=== PATIENT | female | born 1970 | race Caucasian/White ===

== ENCOUNTER 2017-09-24 14:25 | Outpatient (CLI) ==
--- NOTE | 2017-09-24 16:39 | DI ---
EXAM: Five views of the lumbar spine. History: Lumbar radiculopathy. Findings: No acute fracture or subluxation of the lumbar spine. Mild to moderate multilevel degener ative disc space narrowing with endplate sclerosis and small osteophyte formation. Impression: 1. No acute osseous abnormality. 2. Mild degenerative disc disease
--- NOTE | 2017-09-24 16:40 | DI ---
EXAM: Four views of the left knee. History: Left knee pain. Findings: No acute fracture or dislocation. Moderate narrowing of the medial compartment. Mild to moderate narrowing of the lateral and patellofemoral compartments with osteophyte formation. No abno rmal calcifications or radiopaque foreign bodies. Impression: 1. No acute osseous abnormality. 2. Tricompartmental osteoarthritis
--- NOTE | 2017-09-24 16:42 | DI ---
EXAM: Three views of the left ankle. History: Left ankle pain. Findings: No acute fracture or dislocation. No abnormal calcifications or radiopaque foreign bodies . Calcaneal enthesiopathy. Joint spaces are relatively preserved. Impression: 1. No acute osseous abnormality. 2. Calcaneal enthesiopathy
== END 2017-09-24 14:26 | disposition home or self-care (01) ==
LOC: RAD 14:25
PROVIDERS: ATTEND Nurse Practitioner Family
DX: M79.7 Fibromyalgia (principal); M25.50 Pain in unspecified joint; E66.9 Obesity, unspecified; M54.17 Radiculopathy, lumbosacral region; M79.89 Other specified soft tissue disorders; M25.572 Pain in left ankle and joints of left foot; G89.29 Other chronic pain
CPT/HCPCS: 36415; 80053; 80061; 85025; 86038; 86430

== ENCOUNTER 2017-11-03 12:46 | Outpatient (CLI) | END 2017-11-03 12:47 | disposition home or self-care (01) | LOC: FCC-LAB 12:46 | PROVIDERS: ATTEND Nurse Practitioner Family | DX: M54.17 Radiculopathy, lumbosacral region (principal); E66.9 Obesity, unspecified; Z79.899 Other long term (current) drug therapy | CPT/HCPCS: 36415; 80053; 81001; 87086 ==

== ENCOUNTER 2018-03-08 20:43 | Emergency (ER) | payer OTHER ==
[2018-03-08 20:55] VITALS: BP 145/100; TEMP 98.1; BMI 46.6
--- NOTE | 2018-03-08 21:18 | ED.PDOC ---
General ED Provider: Dr. KAITY ALVES MD Chief Complaint: Urinary Problem Stated Complaint: dysuria Time Seen by Physician: 21:15 Mode of Arrival: Walk-In Information Source: Patient Exam Limitations: No limitations Primary Care Provider: GERSON CARBALLO Nursing and Triage Documentation Reviewed and Agree: Yes Does patient meet sepsis criteria?: No If yes, has appropriate treatment been initiated?: Yes System Inflammatory Response Syndrome: Not Applicable Sepsis Protocol: For patient's 13 years and over: Temp is 96.8 and below OR 101 and greater Pulse >90 BPM Resp >20/minute Acutely Altered Mental Status Are patient's symptoms suggestive of a new infection, such as: -Pneumonia -Skin, Soft Tissue -Endocarditis -UTI -Bone, Joint Infection -Implantable Device -Acute Abdominal Infection -Wound Infection -Meningitis -Blood Stream Catheter Infection -Unknown Review of Systems - Review Of Systems Constitutional: Reports: No symptoms Eyes: Reports: No symptoms Ears, Nose, Mouth, Throat: Reports: No symptoms Respiratory: Reports: No symptoms Cardiac: Reports: No symptoms GI: Reports: No symptoms : Reports: No symptoms, Dysuria, Urgency Musculoskeletal: Reports: No symptoms Skin: Reports: No symptoms Neurological: Reports: No symptoms Endocrine: Reports: No symptoms Hematologic/Lymphatic: Reports: No symptoms All Other Systems: Reviewed and Negative Past Medical History - Past Medical History Previously Healthy: Yes (recent Left total knee) Endocrine: Reports: None Cardiovascular: Reports: None Respiratory: Reports: None Hematological: Reports: None Gastrointestinal: Reports: None Genitourinary: Reports: None Neuro/Psych: Reports: None Musculoskeletal: Reports: None Cancer: Reports: None Last Menstrual Period: PT HAS HAD A HYSTERECTOMY - Surgical History General Surgical History: Reports: Other (left totoal knee) - Family History Family History: Reports: None - Social History Smoking Status: Never smoker Hx Substance Use: No Alcohol Screening: None - Immunizations Tetanus Shot up to Date: Yes Physical Exam - Physical Exam Appearance: Well-appearing, No pain distress, Well-nourished Ill-appearing: None Pain Distress: Mild Eyes: SANDRA, EOMI, Conjunctiva clear ENT: Ears normal, Nose normal, Oropharynx normal Respiratory: Airway patent, Breath sounds clear, Breath sounds equal, Respirations nonlabored Cardiovascular: RRR, Pulses normal, No rub, No murmur GI/: Soft, Nontender, No masses, Bowel sounds normal, No Organomegaly Musculoskeletal: Normal strength, ROM intact, No edema, No calf tenderness Skin: Warm, Dry, Normal color Neurological: Sensation intact, Motor intact, Reflexes intact, Cranial nerves intact, Alert, Oriented Psychiatric: Affect appropriate, Mood appropriate Critical Care Note - Critical Care Note Total Time (mins): 0 Course - Course Orders, Labs, Meds: Lab Review 03/08/18 21:05 Urine Color [place] Urine Clarity Clear Urine pH 6.0 Ur Specific [place] 1.020 Urine Protein 1+ Urine Glucose (UA) Trace Urine Ketones Negative Urine Blood Negative Urine Nitrite Positive Urine Bilirubin Negative Urine Urobilinogen 1.0 Ur Leukocyte Esterase 1+ Urine Microscopic WBC 10-20 Ur Squamous Epith Cells 5-10 Urine Bacteria Trace Orders Category Date Time Status UA [URINALYSIS C & S IF INDICATED] Stat LAB 03/08/18 21:05 Completed URINE CULTURE Stat LAB 03/08/18 21:49 Received Vital Signs: Temp Pulse Resp BP Pulse Ox 03/08/18 20:44 98.1 F 91 H 20 145/100 H 97 Departure - Departure Time of Disposition: 20:00 Disposition: HOME SELF-CARE Discharge Problem: UTI (urinary tract infection) Instructions: Urinary Tract Infection in Women (ED) Condition: Good Pt referred to PMD for follow-up: Yes IPMP verified?: No Prescriptions: Sulfamethoxazole/Trimethoprim [Bactrim Ds 800/160 mg] 1 tab PO Q12HR 5 Days #10 tablet Allergies/Adverse Reactions: Allergies Penicillins Adverse Reaction (Verified 03/08/18 20:54) Rash Home Medications: Ambulatory Orders Aspirin 325 mg PO DAILY 03/08/18 Cyclobenzaprine HCl [Flexeril] 10 mg PO DAILY 03/08/18 Nystatin [Nystop Powder] 1 applic TP BID PRN 03/08/18 Sulfamethoxazole/Trimethoprim [Bactrim Ds 800/160 mg] 1 tab PO Q12HR 5 Days #10 tablet 03/08/18
[2018-03-08] MEDS ORDERED: ROCEPHIN IM STA (21:50)
[2018-03-08] MEDS ORDERED: LIDOCAINE HCL 1% SDV IM STA (21:50)
== END 2018-03-08 22:49 | disposition home or self-care (01) ==
LOC: ED 20:43
DX: R30.0 Dysuria (principal); N39.0 Urinary tract infection, site not specified; R39.15 Urgency of urination
CPT/HCPCS: 81001; 87086; 96372; 99283